=== PATIENT | female | born 1955 | race Caucasian/White ===

== ENCOUNTER → 2022-08-23 | Outpatient (CLI) | payer MEDICARE, SELFPAY | END | disposition home or self-care (01) | LOC: LAB 10:01 | PROVIDERS: PCP Internal Medicine; Referring Provider Obstetrics & Gynecology; Visit Provider Obstetrics & Gynecology | DX: Z00.00 Encounter for general adult medical examination without abnormal findings (principal) | CPT/HCPCS: 36415; 80053; 85027 ==

== ENCOUNTER 2022-09-05 09:17 | Day surgery (SDC) | payer MEDICARE, SELFPAY ==
--- NOTE | 2022-08-18 10:16 | PCM.HP.BLA ---
History and Physical Date of Admission: 08/28/22 HPI: The patient is a 67 year old female presenting for pre-operative visit. She is scheduled for hysteroscopy D&C w/ polyp resection, for PMB and thickened endometrium on 08/28/2022. Procedure discussed along with risks, benefits and complications. Other alternatives discussed for management. Consent form signed? Yes. ? ? PAST MEDICAL HISTORY PAST MEDICAL HISTORY Diagnosis Date ? Allergic rhinitis, cause unspecified ? ? Allergic rhinitis ? Dysmetabolic syndrome X ? ? Edema 09/10/2006 ? Esophageal reflux ? ? HTN (hypertension) ? ? Migraine headache with aura ? ? visual sparkles and scotoma ? Obesity, unspecified ? ? Other and unspecified mitral valve diseases ? ? Snoring ? ? Tobacco use disorder ? ? Vitamin D Deficiency 06/08/2009 ? ? PAST SURGICAL HISTORY PAST SURGICAL HISTORY Procedure Laterality Date ? COLONOSCOPY FLX DX W/COLLJ SPEC WHEN PFRMD ? 10/15/2012 ? Colonoscopy ? COLONOSCOPY FLX DX W/COLLJ SPEC WHEN PFRMD ? 04/02/2018 ? Colonoscopy ? ESOPHAGOGASTRODUODENOSCOPY TRANSORAL DIAGNOSTIC ? 10/15/2012 ? EGD ? HYSTEROSCOPY, DIAGNOSTIC (SEPARATE ? 80s ? Hysteroscopy/D+C ? LEFT HEART CATH,PERCUTANEOUS ? 1996 ? NIPPLE EXPLORATION ? 12/06/14 ? left - benign ? ? ? CURRENT MEDICATIONS Current Outpatient Medications Medication Sig Dispense Refill ? meloxicam (MOBIC) 7.5 mg tablet Take 1-2 tablets daily by mouth for pain as needed. Take with food. 60 tablet 2 ? fluticasone (FLONASE) 50 mcg/actuation nasal spray Use 2 Sprays in each nostril once daily. Rinse mouth after use. 1 Each 3 ? zolpidem (AMBIEN) 10 mg TAKE ONE-HALF TO ONE TABLET BY MOUTH AT BEDTIME NEEDED 30 tablet 1 ? potassium chloride ER (K-DUR, KLOR-CON) 20 mEq tablet Take 1 tablet by mouth once daily. 90 tablet 3 ? triamterene-hydroCHLOROthiazide (MAXZIDE-25) 37.5-25 mg per tablet Take 1 tablet by mouth once daily. 90 tablet 3 ? omeprazole (PRILOSEC) 20 mg capsule Take 20 mg by mouth once daily. ? ? ? Cholecalciferol, Vitamin D3, 5,000 unit ORAL Cap Take 1 capsule by mouth once daily. Take with calcium. ? 0 ? CLARITIN-D 24 HOUR 10 MG-240 MG TAB one tab daily as needed ? 0 ? CENTRUM SILVER TAB Take one(1) tablet daily. ? 0 ? No current facility-administered medications for this visit. ? ? ALLERGIES: Bee Stings [Other], Erythromycin, and Keflex [Cephalexin] ? PERSONAL HISTORY: SOCIAL HISTORY Social History ? Tobacco Use ? Smoking status: Every Day ? ? Packs/day: 0.50 ? ? Years: 37.00 ? ? Pack years: 18.50 ? ? Types: Cigarettes ? ? Start date: 03/26/1968 ? ? Last attempt to quit: 05/11/2006 ? ? Years since quittin.2 ? Smokeless tobacco: Never ? Tobacco comments: ? ? few less than half pack --still workinng on quitting Vaping Use ? Vaping Use: Never used Substance Use Topics ? Alcohol use: Yes ? ? Comment: OCASSIONAL ? Drug use: No ? FAMILY HISTORY: FAMILY HISTORY FAMILY HISTORY Problem Relation Age of Onset ? Stroke Mother ? ? Anesthesia Mother ? ? Heart Mother ? ? Heart Father ? ? Hypertension Father ? ? Uterine Cancer Sister ? ? Heart Brother ? ? mi age 46-- ? Stroke Brother ? ? Cancer Maternal Grandfather ? ? stomach & lung ? ? REVIEW OF SYMPTOMS: GENERAL: denies fevers or chills ENDOCRINOLOGY: has not been on steroids Cardiology : denies palpitations or chest pain Respiratory: denies SOB or cough Hematology: denies history of prolonged bleeding or easy bruising or VTE Allergy: Denies history of personal or family history of allergy to anesthesia ? PHYSICAL EXAMINATION: ? VITALS: Last menstrual period 12/29/2004. ? GENERAL: The patient is well nourished, well hydrated in no acute distress. , The patient is oriented to time, place, and person. NECK: Supple. No lynphadenopathy, normal thyroid, no thyromegaly. LUNGS: Clear to auscultation bilaterally. no wheezes, rhonchi or rales HEART: Regular rate and rhythm, Normal heart sounds, and No murmurs or gallops Pelvic US 07/03/22 Limitations: Body habitus. Uterus size: 7.8 x 3.9 x 4.9 cm ?? ? -Orientation: Anteverted ?? ? -Myometrium: Heterogeneous echotexture with multilevel fibroids. ? The largest fibroid seen in the fundal area measuring 1.4 x 1.0 x 1.6 cm. ?? ? -Endometrial echo complex: Thickened endometrium with multiple cystic areas, measuring 12 mm in thickness. ?? ? -Cervix: Multiple nabothian cysts with the largest one measuring 6 mm. Right ovary: Not visualized. Left ovary: Not visualized. ? ? IMPRESSION: PMB, thickened endometrium ? PLAN: The risks/benefits/alternatives and personal involved for the planned hysteroscopy with D&C and polyp resection were reviewed with the patient. Her questions were answered to her satisfaction and she desires to proceed. Consent was signed. I reviewed with her postop instructions and expectations. ? ? I have reviewed and updated past medical and surgical history, medications and allergies Assessment & Plan Assessment/Plan (1) PMB (postmenopausal bleeding): (2) Endometrial thickening on ultrasound:
[2022-08-23 10:53] LABS: Hematocrit 47.8 % (37-47); Hemoglobin 15.4 g/dL (12.0-15.0); Mean Corp Hgb Conc 32.2 g/dL (32-36); Mean Corpuscular Hgb 30.9 pg (27.0-32.0); Mean Platelet Vol. 10.3 fl (6.2-12.0); Platelet Count 269 K/mm3 (150-450); RBC Distribution Width CV 13.2 % (11.6-14.6); RBC Distribution Width SD 46.7 fl (35.1-43.9); Red Blood Count 4.98 M/mm3 (4.2-5.4); White Blood Count 8.6 K/mm3 (4.4-11.0)
[2022-08-23 11:11] LABS: ALB/GLOB Ratio 0.8 RATIO (0.9-2.4); AST(SGOT) 17 U/L (15-37); Alanine Aminotransfer ALT/SGPT 29 U/L (13-56); Albumin, Serum 3.6 g/dL (3.2-5.0); Alkaline Phosphatase 79 U/L (45-117); Anion Gap 7 (5-15); BUN 17 mg/dL (7-18); BUN/Creat Ratio 18.4 RATIO (10-20); Chloride 105 mmol/L (98-107); Creatinine, Serum 0.92 mg/dL (0.55-1.02); EST Glomerular Filtration Rate 64 mL/min (>60); Est Glom Filt Rate - Afr Amer 78 mL/min (>60); Globulin 4.3 g/dL (2.2-4.2); Glucose 120 mg/dL (74-106); Potassium 3.9 mmol/L (3.5-5.1); Protein, Total 7.9 g/dL (6.4-8.2); Sodium Level 139 mmol/L (136-145)
[2022-09-05] VITALS (7 sets, daily range): BP systolic 117–169; BP diastolic 62–90; PULSE 66–82; RESP 16–18; TEMP 36.3–36.7; O2SAT 91–94; BMI 45.6
[2022-09-05] MEDS: Acetaminophen 500 MG Tablet 1000 MG PO ×2 (09:46→09:50)
[2022-09-05] MEDS: Ketorolac 15 MG/ML Vial IV ×2 (09:46→09:50)
[2022-09-05] MEDS: Lactated Ringers 1,000 ML 15 ML IV (09:52)
--- NOTE | 2022-09-05 10:41 | PCM.DC ---
Discharge Instructions Diet Discharge Diet: No restrictions Activity May shower in (days): 1 May resume sexual activity in: 1-2 weeks and 2 weeks Lifting Restrictions: none Dressing / Incision Call your doctor if your incision/area has: Sudden Increased Bleeding and Foul Smelling Discharge Call your doctor if you observe: Fever of 101 or Higher and Using more than 1 pad per hour (for 2 hrs in a row) Follow Up Care Please Follow Up With: Silvia Singh MD When: We will contact you with your pathology next week and schedule a follow-up appointment if needed. If you have any questions or concerns, please contact the office at [phone] of via [employer] Test Results: Test results from this visit will be discussed in further detail at your follow-up appointment, if applicable. Discharge Plan Admission Primary Reason for Your Visit: Hysteroscopy DIlation and curettage Attending Provider: Silvia Singh Primary Care Provider: Mariposa Toth Discharge Orders/Prescriptions Prescriptions: Continued potassium chloride [Klor-Con] 20 mEq Packet 20 meq PO DAILY Qty: 0 triamterene-hydrochlorothiazid [Maxzide-25mg] 1 EACH tablet 1 tab PO DAILY omeprazole 20 MG capsule 20 mg PO DAILY zolpidem [Ambien] 10 MG tablet 5 mg PO PRN PRN (Reason: Insomnia) fluticasone propionate 50 mcg/actuation [place],Suspension 2 spray INTRANASAL DAILY PRN (Reason: ALLERGIES) Qty: 0 Rx Instructions: administer into each nostril loratadine [Allergy Relief (loratadine)] 10 MG tablet 10 mg PO DAILY calcium carbonate-vitamin D3 1 EACH tablet 1 ea PO DAILY meloxicam 7.5 mg tablet 7.5 mg PO DAILY PRN (Reason: Pain) Referrals / Follow Up: Mariposa Toth MD [Primary Care Provider] - Disposition Disposition (needs filled in before D/C Order can be placed): Home, Self Care
[2022-09-05] MEDS: Lidocaine 1% /Epi 1:100 (20ml) 20 ML Vial (10:44)
--- NOTE | 2022-09-05 10:45 | EMB_PTH ---
PATIENT: BOZENA DAVILA LOC: [facility] – [place] U#:[id number] AGE/SX: 67/F ROOM: RE09/05/[address]: Dr. Silvia Singh MD : [id number] BED: DIS: 09/05/2022 SPEC #: [id number] RECD: 09/05/22 11:25 STATUS: CESAR RICCILiberty #: [id number] BRENNAN: 09/05/22 10:[address]: Silvia Singh DEPT: SURGICAL PATHOLOGY RECD BY: Gail Ceabllos ENTERED: 09/05/22 11:34 SP TYPE: ENDOM BX/C OTHR DR: Dr. Mariposa Toth MD Tissues: Endometrium, NOS Procedures: Surgery Specimen Level IV HEADER OPERATION: Hysteroscopy with polyp resection, D & C Symphion PRE-OP DIAGNOSIS: Postmenopausal bleeding; endometrial thickening on ultrasound TISSUE SUBMITTED: Endometrial curettings and polyp MICROSCOPIC DIAGNOSIS Endometrial curettings and polyp: Disordered endometrium with cystic change. Fragments of benign myometrium. AM:mary jane 09/08/2022 COMMENT Case has been reviewed in consultation with Dr. Rees who concurs with the above diagnosis. IDC:DEEJAY MICROSCOPIC DESCRIPTION Slides are reviewed. GROSS DESCRIPTION Received in fixative is one container labeled with the patient's name and designated endometrial curettings and polyp. The specimen consists of multiple irregular fragments of choudhary soft tissue that in aggregate measure 3.0 x 3.0 x 0.3 cm. The specimen is totally submitted in one cassette. / DEEJAY:mary jane 09/05/2022 TC:5 CPT: 57575
--- NOTE | 2022-09-05 10:58 | OP.PCM_ITS ---
Problems Associated Problem List Diagnoses (1) PMB (postmenopausal bleeding): (2) Endometrial thickening on ultrasound: Report of Operation Date of Procedure: 09/05/22 Pre-Operative Diagnosis: PMB, thickened endometrium Post-Operative Diagnosis: same + endometrial polyp Surgery/Procedure Performed:: Hysteroscopy D&C with endometrial polyp resection Description of Surgical Findings:: normal cervix and vagina, atrophic endometrium, bicornuate shaped uterus, both tubal ostia noted. Small pedunculated posterior polyp Surgeon: Silvia Singh geographic information systems engineer: None Type of Anesthesia: MAC/Supplemental/Local Anesthesiologist: Eloy Lopez Special Medications: none Specimen's removed: endometrial polyp and curettings Drains: none Estimated Blood Loss (mL): 10 Fluids Replaced: 500 Description of Procedure: The patient was taken to the OR where she was prepped and draped in dorsal lithotomy position. The weighted speculum was placed in the vagina and the anterior lip of the cervix was grasped with a single-tooth tenaculum. A paracervical block was administered with [1% lidocaine with 1-100,000 epinephrine solution]. The cervix was dilated serially with Hegar dilators. The Symphion 7 mm hysteroscope was placed into the uterine cavity and the above findings were noted. Bilateral tubal ostia [were] identified. The hysteroscope was removed. The Symphion device was readied and inserted. The polyp was resected in its entirety and the stalk was hemostatic. I then did a visual D&C of the uterine cavity. I then did a sharp gentle curettage of the uterine cavity with minimal specimen returning at that point.. The instruments were removed from the vagina. The specimen was handed off and sent to pathology. All sponge and needle counts were correct. Vaginal sweep was performed by me. The patient was awakened and taken to the recovery room in stable condition. Calculated hysteroscopic fluid deficit is 550 cc of normal saline Grafts/Implants Used: none Procedure Start Time: 10:41 Procedure Stop Time: 10:55 Complications noen Admit VTE Documentation VTE Present on Admission: No VTE Mechan Device Prophylaxis: SCD's VTE Pharm Prophylaxis ordered?: No Reason prophylaxis not ordered:: Procedure Not Indicated
== END 2022-09-05 12:08 | disposition home or self-care (01) ==
LOC: SDC 09:19 → AC 09:21
PROVIDERS: PCP Internal Medicine; Referring Provider Obstetrics & Gynecology; Visit Provider Obstetrics & Gynecology
PROC: 0UB98ZZ Excision of Uterus, Via Natural or Artificial Opening Endoscopic (ICD-10-PCS; CPT 58558; principal; 2022-09-05 10:30)
DX: N95.0 Postmenopausal bleeding (principal); N84.0 Polyp of corpus uteri; I10 Essential (primary) hypertension; K21.9 Gastro-esophageal reflux disease without esophagitis; G43.909 Migraine, unspecified, not intractable, without status migrainosus; F17.210 Nicotine dependence, cigarettes, uncomplicated; Z79.899 Other long term (current) drug therapy
CPT/HCPCS: 58558; 00952; 36415; 80053; 85027; 88305; J7120; J2405

== ENCOUNTER 2024-08-11 11:16 | Day surgery (SDC) | payer MEDICARE, SELFPAY ==
--- NOTE | 2024-07-18 10:33 | HP.PCM_ITS ---
History and Physical Date of Admission: 08/11/24 HPI: The patient is a 68 year old female presenting for pre-operative visit. She is scheduled for Hysteroscopy D&C, polyp resection for PMB and thickened endometrium and endometrial polyp on 08/11/24. Procedure discussed along with risks, benefits and complications. Other alternatives discussed for management. Consent form signed? Yes. ? ? PAST MEDICAL HISTORY PAST MEDICAL HISTORYDiagnosisDate?Allergic rhinitis, cause unspecified??Allergic rhinitis?Dysmetabolic syndrome X??Edema09/10/2006?Esophageal reflux??HTN (hypertension)??Migraine headache with aura??visual sparkles and scotoma ?Obesity, unspecified??Other and unspecified mitral valve diseases??Snoring??Tobacco use disorder??Vitamin D Deficiency 06/08/2009 ? ? PAST SURGICAL HISTORY PAST SURGICAL HISTORYProcedureLateralityDate?COLONOSCOPY FLX DX W/COLLJ SPEC WHEN PFRMD?10/15/2012?Colonoscopy?COLONOSCOPY FLX DX W/COLLJ SPEC WHEN PFRMD?04/02/2018?Colonoscopy?ESOPHAGOGASTRODUODENOSCOPY TRANSORAL DIAGNOSTIC?10/15/2012?EGD?HYSTEROSCOPY BX ENDOMETRIUM&/POLYPC W/WO D&C?09/05/2022?hysteroscopy D&C w/ polyp resection?HYSTEROSCOPY, DIAGNOSTIC (SEPARATE?80s?Hysteroscopy/D+C?LEFT HEART CATH,PERCUTANEOUS?1996?NIPPLE EXPLORATION?12/06/2014?left - benign ? ? ? CURRENT MEDICATIONS Current Outpatient MedicationsMedicationSigDispenseRefill?fluticasone (FLONASE) 50 mcg/actuation nasal sprayUse 2 Sprays in each nostril once daily. Rinse mouth after use.1 Each5?zolpidem (AMBIEN) 10 mgTake 0.5-1 tablets by mouth daily at bedtime for 180 days.30 tablet5?meloxicam (MOBIC) 7.5 mg tabletTake 1-2 tablets daily by mouth for pain as needed. Take with food.60 tablet2?potassium chloride ER (KLOR-CON) 20 mEq tabletTake 1 tablet by mouth once daily.90 tablet3?loratadine-pseudoephedrine ER (CLARITIN-D 24 HOUR) 10-240 mg Up82Dmmb 1 tablet by mouth once daily. PRN90 tablet3?brimonidine (ALPHAGAN) 0.2 % ophthalmic solutionUse 1 Drop in both eyes two times a day.???latanoprost (XALATAN) 0.005 % ophthalmic solution?triamterene-hydroCHLOROthiazide (MAXZIDE-25) 37.5-25 mg per tabletTake 1 tablet by mouth once daily.90 tablet3?omeprazole (PRILOSEC) 20 mg capsuleTake 20 mg by mouth once daily.???Cholecalciferol, Vitamin D3, 5,000 unit ORAL CapTake 1 capsule by mouth once daily. Take with calcium.?0?CENTRUM SILVER TABTake one(1) tablet daily.?0?miSOPROStol (CYTOTEC) 200 mcg tabletUse 2 tablets vaginally one time only for [address] 2 tablets vaginally the night before surgery2 tablet0?dorzolamide (TRUSOPT) 2 % ophthalmic solutionINSTILL 1 DROPS INTO EACH EYE THREE TIMES DAILY DIRECTED (Patient not taking: Reported on 06/22/2024)??? No current facility-administered medications for this visit. ? ? ALLERGIES: Bee Sting, Dorzolamide Hcl, Erythromycin, and Keflex [Cephalexin] ? PERSONAL HISTORY: SOCIAL HISTORY Social History?Tobacco Use?Smoking status:Every Day??Current packs/day:0.00??Average packs/day:0.5 packs/day for 38.1 years (19.1 ttl pk- yrs)??Types:Cigarettes??Start date:03/26/1968??Last attempt to quit:05/11/2006??Years since quittin.1?Smokeless tobacco:Never?Tobacco comments:??few less than half pack --still working on quitting. October 07, 2022--1 pack lasts about 2 weeks Vaping Use?Vaping status:Never UsedSubstance Use Topics?Alcohol use:Yes??Comment: OCASSIONAL?Drug use:No ? FAMILY HISTORY: FAMILY HISTORY FAMILY HISTORY ProblemRelationAge of Onset ?StrokeMother??AnesthesiaMother??HeartMother??HeartFather??HypertensionFather??U terine CancerSister??HeartBrother?? mi age 46-- ?StrokeBrother??CancerMaternal Grandfather?? stomach & lung ? ? REVIEW OF SYMPTOMS: GENERAL: denies fevers or chills ENDOCRINOLOGY: has not been on steroids Cardiology : denies palpitations or chest pain Respiratory: denies SOB or cough Hematology: denies history of prolonged bleeding or easy bruising or VTE Allergy: Denies history of personal or family history of allergy to anesthesia ? PHYSICAL EXAMINATION: ? VITALS: Blood pressure 152/78, weight 127 kg (280 lb), last menstrual period 12/29/2004. ? GENERAL: The patient is well nourished, well hydrated in no acute distress. , The patient is oriented to time, place, and person. NECK: Supple. No lynphadenopathy, normal thyroid, no thyromegaly. LUNGS: Clear to auscultation bilaterally. no wheezes, rhonchi or rales HEART: Regular rate and rhythm, Normal heart sounds, and No murmurs or gallops ? IMPRESSION: PMB/thickened endometrium and endometrial polyp ? PLAN: The risks/benefits/alternatives and personal involved for the planned hysteroscopy D&C with endometrial polyp resection were reviewed with the patient. Her questions were answered to her satisfaction and she desires to proceed. Consent was signed. I reviewed with her postop instructions and expectations. ? ? I have reviewed and updated past medical and surgical history, medications and allergies Assessment & Plan Assessment/Plan (1) Endometrial polyp: (2) PMB (postmenopausal bleeding): (3) Endometrial thickening on ultrasound:
--- NOTE | 2024-08-02 15:39 | PAT.ANE_ITS ---
Pre-Assessment Diagnosis/Proposed Procedure Planned Operative Procedure(s): HYSTERSCOPY, D&C POLYP RESECTION Anesthesia History Anesthesia History - crop and soil scientist: Anesthesia History - crop and soil scientist Hx Hospitalization No 08/01/24 08:21 Any Problems With Anesthesia No 08/01/24 08:21 Cholinesterase deficiency No 08/01/24 08:21 You/Your Family Experience No 08/01/24 08:21 fever (hyperthermia) with Relationship Recent Exposure to Contagious No 09/05/22 09:53 Disease Does patient have nerve No 08/01/24 08:21 stimulator Patient instructed to have device shut off --Does patient have Pacemaker or ICD? When Was Last Pacemaker Check QUESTION #4 FULL TEXT: You/Your Family Experience fever (hyperthermia) with Anesthesia Last Oral Intake Last Oral intake: Last Oral Intake NPO since Meds taken in AM with sips of water? Meds patient instructed to take am of surgery PONV PONV - crop and soil scientist: PONV - crop and soil scientist Female Yes 08/01/24 08:21 HX of Motion Sickness Yes 08/01/24 08:21 HX of N/V After Surgery No 08/01/24 08:21 Non-Smoker No 08/01/24 08:21 Duration of Surgery greater No 08/01/24 08:21 than 60 minutes Number of Risk Factors 2 08/01/24 08:21 PONV Score Moderate Risk 08/01/24 08:21 Height & Weight Height & Weight: Anesthesia: Height & Weight Height 5 ft 8 in 09/05/22 09:53 Respiratory Assessment Respiratory Assessment - crop and soil scientist: Respiratory Tract Infection Hx - crop and soil scientist Hx Respiratory Tract Infection No 08/01/24 08:21 STOP Sleep Apnea STOP Sleep Apnea - crop and soil scientist: STOP Sleep Apnea - crop and soil scientist Hx Hypertension Yes: CONTROLLED WITH MED 08/01/24 08:21 Hx Sleep Apnea No 08/01/24 08:21 CPAP No 09/05/22 11:05 BIPAP No 12/01/14 15:16 Do you snore loudly (louder Yes 08/01/24 08:21 than talking or can be heard Do you often feel tired/ No 08/01/24 08:21 fatigued/ sleepy during daytime? Has anyone observed you stop No 08/01/24 08:21 breathing during sleep? STOP Results Positive 08/01/24 08:21 QUESTION #5 FULL TEXT : Do you snore loudly (louder than talking or can be heard through closed doors)? Tobacco Use History Tobacco Use History - crop and soil scientist: Tobacco Use History - crop and soil scientist Tobacco Use Smoking Status Current every day smoker 08/01/24 08:21 Hx Tobacco Use Yes 08/01/24 08:21 Years Smoking Packs Smoked per Day 0.5 08/01/24 08:21 Smoking Cessation Date was within the last 15 years Hx Smoking Cessation Date Hx Smoking Cessation Counseling Hematologic Medial History Hematologic Hx - crop and soil scientist: Hematologic Medical Hx - bottle tester Hx of Blood Transfusion No 08/01/24 08:21 Hx of Transfusion in last 3 No 08/01/24 08:21 Months Date of Last Transfusion (if within last 3 months) Ever experience any problems No 08/01/24 08:21 with transfusion(s)? Specify any problems Hx of Preganancy in last 3 N/A 08/01/24 08:21 Months Nurse Filling Out Transfusion NBUCHER 08/01/24 08:21 & Questions: Date: 08/01/24 08/01/24 08:21 Time: 08:23 08/01/24 08:21 Patient unable to answer at this time (ie. confused, unrespo /Reproduction History /Reproductive History - crop and soil scientist: /Reproductive Hx- crop and soil scientist Hx Now No 08/01/24 08:21 Gestational Age (in weeks): EDC: Hx Hx Para Hx Section SAB No 08/01/24 08:21 [facility] Medical History (Updated 08/01/24 @ 08:28 by Mihaela Rodriguez) GERD (gastroesophageal reflux disease) Shortness of breath on exertion History of edema Hypertension Gastric reflux Wears glasses Wears dentures Arthritis Migraine headache Smoker History of echocardiogram Mitral valve prolapse Endometrial thickening on ultrasound PMB (postmenopausal bleeding) Home Medications ?Medication ?Instructions ?Recorded ?Last Taken ?Type calcium 600 mg (as 1 ea PO DAILY 12/01/14 Unkno wn History carbonate)-vitamin D3 20 mcg (800 unit) tablet fluticasone propionate 50 2 spray intranasal DAILY PRN 12/01/14 09/05/22 History mcg/actuation nasal ALLERGIES ##0 spray,suspension loratadine 10 mg tablet (Allergy 10 mg PO DAILY 09/05/22 History Relief (loratadine)) omeprazole 20 mg capsule,delayed 20 mg PO DAILY 09/05/22 History release potassium chloride 20 mEq oral 20 meq PO DAILY ##0 Unknown History packet (Klor-Con) triamterene 37.5 1 tab PO DAILY 12/01/1408/18 History mg-hydrochlorothiazide 25 mg tablet (Maxzide-25mg) zolpidem 10 mg tablet (Ambien) 5 mg PO PRN PRN Insomni a 12/01/14 Unknown History meloxicam 7.5 mg tablet 7.5 mg PO DAILY PRN Pain 08/10 Unknown History bimatoprost 0.01 % eye drops 1 drp EACH EYE QHS Unknown History ([place]) brimonidine 0.2 % eye drops 1 drp ophthalmic (eye) BID 08/01/24 Unknown History Allergy/AdvReac Type Severity Reaction Status Date / Time cephalexin monohydrate (From Allergy Hives Verified 08/01/24 08:15 Keflex) erythromycin base Allergy Hives Verified 08/01/24 08:15 venom-honey bee (bee venom Allergy Hives Verified 08/01/24 08:15 (honey bee)) dorzolamide AdvReac Intermediate Itching Verified 08/01/24 08:18 Surgical History (Updated 08/01/24 @ 08:28 by Mihaela Rodriguez) History of colonoscopy History of cardiac catheterization History of hysteroscopy History of breast biopsy Social History (System 12/14/18 @ 14:51 by Mihaela Mariano) Smoking Status: Current every day smoker tobacco type: cigarettes Audit: Pertinent Findings Pertinent Findings Echo (EF%) pertinent findings: October 26, 2020. Ejection fraction 68%. No aortic stenosis noted. Recommendation Anesthesia Recommendation Anesthesia recommendation: OPTIMIZED for anesthesia
[2024-08-03 10:44] LABS: Hematocrit 43.5 % (37-47); Hemoglobin 14.5 g/dL (12.0-15.0); Mean Corp Hgb Conc 33.3 g/dL (32-36); Mean Corpuscular Hgb 31.2 pg (27.0-32.0); Mean Corpuscular Volume 93.5 fL (81-99); Mean Platelet Vol. 10.3 fl (6.2-12.0); Platelet Count 289 K/mm3 (150-450); RBC Distribution Width SD 44.5 fl (35.1-43.9); Red Blood Count 4.65 M/mm3 (4.2-5.4); White Blood Count 7.6 K/mm3 (4.4-11.0)
[2024-08-03 11:16] LABS: Anion Gap 11 (5-15); BUN 23 mg/dL (4-19); BUN/Creat Ratio 26.6 RATIO (10-20); Calcium,Total 9.8 mg/dL (7.6-11.0); Carbon Dioxide 25.8 mmol/L (21.0-32.0); Chloride 103 mmol/L (98-108); Creatinine, Serum 0.86 mg/dL (0.70-1.20); EST Glomerular Filtration Rate 73 (>60); Glucose 122 mg/dL (70-99); Potassium 4.3 mmol/L (3.3-5.1); Sodium Level 140 mmol/L (133-145)
[2024-08-11] VITALS (8 sets, daily range): BP systolic 82–145; BP diastolic 59–95; PULSE 59–73; RESP 14–18; TEMP 36.2–36.9; O2SAT 90–94; BMI 42.2
[2024-08-11] MEDS: Lactated Ringers 1,000 ML 15 ML IV (12:02)
[2024-08-11] MEDS: Ketorolac 15 MG/ML Vial IV (12:02)
[2024-08-11] MEDS: Acetaminophen 500 MG Tablet 1000 MG PO (12:02)
--- NOTE | 2024-08-11 12:17 | PCM.PRE.AN2 ---
ASA Classification* ASA Classification ASA Classification: 3 Assessment & Plan Anesthesia* Anesthesia Assessment Anesthesia Assessment: Discussed sedation and/or anesthesia options, risks, benefits, and alternatives with patient/parents/legal guardian/POA. Questions invited. The patient/parents/legal guardian/POA seems to understand and agrees to proceed with anesthesia plan. Reviewed the physical assessment, medical history, allergy history and patient home medications list prior to surgery/procedure/anesthetic and documented any changes. Performed airway and anesthesia risk assessments. Anesthesia Type Anesthesia Type: MAC History Source History Obtained from:: Patient and Chart Anesthesia Focused Assessment* Temperature: 98.4 F Pulse Rate: 73 Blood Pressure: 145/95 Respiratory Rate: 18 Pulse Ox: 94 Oxygen Delivery Method: Room Air Airway Assessment Mouth opens: >3 cm Mallampati Score: III Teeth Condition: Dentures (Patient has full upper and lower dentures. They are out.) Neck Range of motion (ROM): Full ROM Focused Labs Anesthesia Preop lab: CBC WBC 7.6 K/mm3 (4.4-11.0) 08/03/24 09:57 08/03/24 RBC 4.65 M/mm3 (4.2-5.4) 08/03/24 09:57 08/03/24 Hgb 14.5 g/dL (12.0-15.0) 08/03/24 09:57 08/03/24 Hct 43.5 % (37-47) 08/03/24 09:57 08/03/24 Plt Count 289 K/mm3 (150-450) 08/03/24 09:57 08/03/24 CHEMISTRY Potassium 4.3 mmol/L (3.3-5.1) 08/03/24 09:57 08/03/24 Sodium 140 mmol/L (133-145) 08/03/24 09:57 08/03/24 BUN 23 mg/dL (4-19) H 08/03/24 09:57 08/03/24 Creatinine 0.86 mg/dL (0.70-1.20) 08/03/24 09:57 08/03/24 Glucose 122 mg/dL (70-99) H 08/03/24 09:57 08/03/24 COAG Pre-Assessment Diagnosis/Proposed Procedure Planned Operative Procedure(s): HYSTERSCOPY, D&C POLYP RESECTION Anesthesia History Anesthesia History - marshmallow runner: Anesthesia History - marshmallow runner Hx Hospitalization No 08/01/24 08:21 Any Problems With Anesthesia No 08/01/24 08:21 Cholinesterase deficiency No 08/01/24 08:21 You/Your Family Experience No 08/01/24 08:21 fever (hyperthermia) with Relationship Recent Exposure to Contagious No 08/11/24 11:58 Disease Does patient have nerve No 08/01/24 08:21 stimulator Patient instructed to have device shut off --Does patient have Pacemaker No 08/11/24 11:58 or ICD? When Was Last Pacemaker Check QUESTION #4 FULL TEXT: You/Your Family Experience fever (hyperthermia) with Anesthesia Last Oral Intake Last Oral intake: Last Oral Intake NPO since 22:00 08/11/24 11:58 Meds taken in AM with sips of No 08/11/24 11:58 water? Meds patient instructed to take am of surgery PONV PONV - marshmallow runner: PONV - marshmallow runner Female Yes 08/01/24 08:21 HX of Motion Sickness Yes 08/01/24 08:21 HX of N/V After Surgery No 08/01/24 08:21 Non-Smoker No 08/01/24 08:21 Duration of Surgery greater No 08/01/24 08:21 than 60 minutes Number of Risk Factors 2 08/01/24 08:21 PONV Score Moderate Risk 08/01/24 08:21 Height & Weight Height & Weight: Anesthesia: Height & Weight Height 5 ft 8 in 08/11/24 11:58 Weight: 126 kg 08/11/24 11:58 Body Mass Index (BMI) 42.2 08/11/24 11:58 Respiratory Assessment Respiratory Assessment - marshmallow runner: Respiratory Tract Infection Hx - marshmallow runner Hx Respiratory Tract Infection No 08/01/24 08:21 STOP Sleep Apnea STOP Sleep Apnea - marshmallow runner: STOP Sleep Apnea - marshmallow runner Hx Hypertension Yes: CONTROLLED WITH MED 08/01/24 08:21 Hx Sleep Apnea No 08/01/24 08:21 CPAP No 09/05/22 11:05 BIPAP No 12/01/14 15:16 Do you snore loudly (louder Yes 08/01/24 08:21 than talking or can be heard Do you often feel tired/ No 08/01/24 08:21 fatigued/ sleepy during daytime? Has anyone observed you stop No 08/01/24 08:21 breathing during sleep? STOP Results Positive 08/01/24 08:21 QUESTION #5 FULL TEXT : Do you snore loudly (louder than talking or can be heard through closed doors)? 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 Specify any problems Hx of Preganancy in last 3 N/A 08/01/24 08:21 Months Nurse Filling Out Transfusion NBUCHER 08/01/24 08:21 & Questions: Date: 08/01/24 08/01/24 08:21 Time: 08:23 08/01/24 08:21 Patient unable to answer at this time (ie. confused, unrespo /Reproduction History /Reproductive History - marshmallow runner: /Reproductive Hx- marshmallow runner Hx Now No 08/01/24 08:21 Gestational Age (in weeks): EDC: Hx Hx Para Hx Section SAB No 08/01/24 08:21 Active Medications Active Medications: Current Medications Generic Name Dose Route Start Last Admin Trade Name Freq PRN Reason Stop Dose Admin Acetaminophen 1,000 mg 08/11/24 12:45 08/11/24 12:02 Acetaminophen 500 Mg Tablet PO 08/11/24 12:46 1,000 mg X1 ONE Administration Lactated Ringer's 1,000 mls @ 15 mls/hr 08/11/24 12:00 08/11/24 12:02 IV 15 mls/hr .Q48H MAGALIE Administration Ketorolac Tromethamine 15 mg 08/11/24 12:45 08/11/24 12:02 Ketorolac 15 Mg/Ml Vial IV 08/11/24 12:46 15 mg X1 ONE Administration PFSH Medical History GERD (gastroesophageal reflux disease) Shortness of breath on exertion History of edema Hypertension Gastric reflux Wears glasses Wears dentures Arthritis Migraine headache Smoker History of echocardiogram Mitral valve prolapse Endometrial thickening on ultrasound PMB (postmenopausal bleeding) Home Medications ?Medication ?Instructions ?Recorded ?Last Taken ?Type calcium 600 mg (as 1 ea PO DAILY 12/01/14 Unknown History carbonate)-vitamin D3 20 mcg (800 unit) tablet fluticasone propionate 50 2 spray intranasal DAILY PRN 12/01/14 09/05/22 History mcg/actuation nasal ALLERGIES ##0 spray,suspension loratadine 10 mg tablet (Allergy 10 mg PO DAILY 12/01/14 09/05/22 History Relief (loratadine)) omeprazole 20 mg capsule,delayed 20 mg PO DAILY 12/01/14 09/05/22 History release potassium chloride 20 mEq oral 20 meq PO DAILY ##0 12/01/14 Unknown History packet (Klor-Con) triamterene 37.5 1 tab PO DAILY 12/01/14 09/05/22 History mg-hydrochlorothiazide 25 mg tablet (Maxzide-25mg) zolpidem 10 mg tablet (Ambien) 5 mg PO PRN PRN Insomnia 12/01/14 Unknown History meloxicam 7.5 mg tablet 7.5 mg PO DAILY PRN Pain 08/21/22 Unknown History bimatoprost 0.01 % eye drops 1 drp EACH EYE QHS 08/01/24 Unknown History (Lumigan) brimonidine 0.2 % eye drops 1 drp ophthalmic (eye) BID 08/01/24 Unknown History Allergy/AdvReac Type Severity Reaction Status Date / Time cephalexin monohydrate (From Allergy Hives Verified 08/11/24 11:56 Keflex) erythromycin base Allergy Hives Verified 08/11/24 11:56 venom-honey bee (bee venom Allergy Hives Verified 08/11/24 11:56 (honey bee)) dorzolamide AdvReac Intermediate Itching Verified 08/11/24 11:56 Surgical History History of colonoscopy History of cardiac catheterization History of hysteroscopy History of breast biopsy Social History Smoking Status: Current every day smoker tobacco type: cigarettes Review of Systems (Anesthesia) ROS Narrative System reviewed and no additional complaints, except as documented.
--- NOTE | 2024-08-11 12:45 | EMB_PTH ---
PATIENT: BOZENA DAVILA LOC: [facility] [place] U#:[id number] AGE/SX: 69/F ROOM: RE08/11/[address]: Dr. Silvia Singh MD : 1955 BED: DIS: 08/11/2024 SPEC #: [id number] RECD: 08/12/24 09:40 STATUS: CESAR HENRY #: [id number] BRENNAN: 08/11/24 12:[address]: Silvia Singh DEPT: SURGICAL PATHOLOGY RECD BY: José Luis Ledbetter ENTERED: 08/12/24 09:40 SP TYPE: ENDOM BX/C MARYBEL DR: Dr. Mariposa Toth MD Tissues: A - Endometrium, NOS Procedures: Immunohistochemical Stains Surgery Specimen Level IV IHC Stain ADDITIONAL HEADER OPERATION: Hysteroscopy, D&C, polyp resection PRE-OP DIAGNOSIS: Endometrial polyp, post menopausal bleeding, endometrial thickening on ultrasound TISSUE SUBMITTED: A- Endometrial curettings and polyp MICROSCOPIC DIAGNOSIS A. 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 * Focal squamous metaplasia. * IHC for MMR (mismatch repair proteins), ER, PA and p53 are pending and will be reported in an addendum. COMMENT Selected slides/images were reviewed in intradepartmental consultation by Dr Dorinda Irene (DEBRIDGING MACHINE OPERATOR pathology division, [facility]). MICROSCOPIC DESCRIPTION Slides are reviewed. GROSS DESCRIPTION A. Received in formalin in a container labeled with the patient's name, date of , and endometrial curettings and polyps are multiple white-choudhary fragments of soft tissue admixed with a scant amount of blood and mucus measuring 2.5 x 2.0 x 1.5 cm in aggregate. Submitted in toto in A1-3. [facility] 08-12-2024 CPT:[id number], [id number], [id number] ADDENDUM ADDENDUM ADDENDUM ADDENDUM ADDENDUM ADDENDUM ADDENDUM ADDENDUM ADDENDUM ADDENDUM ADDENDUM ADDENDUM ADDENDUM ADDENDUM ADDENDUM ADDENDUM ADDENDUM ADDENDUM ADDENDUM ADDENDUM ADDENDUM ADDENDUM ADDENDUM ADDENDUM ADDENDUM ADDENDUM ADDENDUM ADDENDUM ADDENDUM ADDENDUM ADDENDUM ADDENDUM ADDENDUM ADDENDUM ADDENDUM ADDENDUM ADDENDUM ADDENDUM ADDENDUM ADDENDUM ADDENDUM ADDENDUM ADDENDUM ADDENDUM ADDENDUM ADDENDUM ADDENDUM ADDENDUM ADDENDUM ADDENDUM 08/31/2024 18:11 ADDENDUM 09/08/2024 13:46 ADDENDUM 08/31/2024 18:11 ADDENDUM 08/31/2024 18:11 ADDENDUM 08/31/2024 18:11 ADDENDUM 08/31/2024 18:11 This addendum is to report the results of the IHC stains performed at [facility]: ER: positive (50%, intermediate intensity) PA: positive (75%, intermediate to strong intensity) p53: wild type Mismatch Repair Protein (MMR) Nuclear Expression by IHC: ? MLH1: ?absent ? PMS2: ?absent ? MSH2: ?present ? MSH6: ?present IHC Interpretation: _X_ Loss of nuclear expression of MLH1 and PMS2: testing for methylation of the MLH1 promoter and/or mutation of BRAF is indicated (the presence of a BRAF V600E mutation and/or MLH1 methylation suggests that the tumor is sporadic and germline evaluation is probably not indicated; absence of both MLH1 methylation and of BRAF V600E mutation suggests the possibility of Seth syndrome, and sequencing and/or large deletion/duplication testing of germline MLH1 may be indicated)# Molecular testing for methylation of the MLH1 promoter has been ordered. The result will be reported in a subsequent addendum. # There are exceptions to the above IHC interpretations. These results should not be considered in isolation, and clinical correlation with genetic counseling is recommended to assess the need for germline testing. All controls show appropriate reactivity. All immunohistochemistry, in situ hybridization, and histochemical tests were developed by and are performed at the [facility], [address], ? [address], [place] [address]. All Immunofluorescent (IF) ?tests were developed by and are performed at the [facility], [facility]. [address] [place] [address], [place], [place] ?[address]. All tests reported here, except those addressing HER2 overexpression as a predictive marker, have not been cleared by or approved by the [place] Food and Drug Administration (FDA). The laboratory is regulated under CLIA as qualified to perform high-complexity testing. The tests are used for clinical purposes. They should not be regarded as investigational or for research. The mismatch repair proteins are evaluated by immunohistochemistry on formalin-fixed, paraffin-embedded tissue, using clone [id number] for MLH1, clone [id number] for PMS2, clone RED2 for MSH2, and clone EP49 for MSH6, and Tissue Mil Genie? Pro Detection Kit, DAB on the [employer] Tissue Mil Genie Advanced Staining System. Convincing nuclear staining in > 1% of tumor cells that is as strong as internal control is considered present/intact. Complete absence of nuclear staining in tumor cells in the presence of nuclear expression in internal control cells is considered absent/lost. Rarely a discrete area of a tumor can show loss of staining with retained nuclear expression in the adjacent tumor cells and internal control cells, which is regarded as subclonal loss and can also be of clinical significance. This addendum is to report the result of the molecular testing for methylation of the MLH1 methylation promoter performed at [facility]: MLH1 METHYLATION STATUS: Hypermethylated MLH1 INTERPRETATION: The presence of hypermethylation of the MLH1 promoter is a tumor sample with loss of MLH1 expression by immunohistochemistry suggests of a MLH1 germline mismatch repair gene mutation is NOT present. No further MLH1 testing is indicated unless evaluation for constitutional MLH1 promoter hypermethylation is warranted. The following pattern was observed for each of the tested MLH1 promoter sites: CpG1: Methylated, CpG2: Methylated, CpG3: Methylated, CpG4: Methylated. Run and sample controls meet acceptable criteria. Please see complete above mentioned consultation report in EMR
--- NOTE | 2024-08-11 13:12 | DCINST_ITS ---
Discharge Instructions Diet Discharge Diet: No restrictions DC O2, CPAP, BIPAP needs Home O2 Discharge instructions: No Dressing / Incision Discharge Activity: May Shower and May Take a Tub Bath (in 1 week) May resume sexual activity in: 1 week Lifting Restrictions: none Dressing / Incision Call your doctor if your incision/area has: Sudden Increased Bleeding and Foul Smelling Discharge Call your doctor if you observe: Fever of 101 or Higher and Using more than 1 pad per hour (for 2 hrs in a row) Follow Up Care Please Follow Up With: Silvia Singh MD When: Dr. Singh's office will contact you with your pathology. Call [phone] or send a [employer] message to make an appointment or with any concerns. Test Results: Test results from this visit will be discussed in further detail at your follow- up appointment, if applicable. Discharge Plan Admission Primary Reason for Your Visit: Hysteroscopy D&C Attending Provider: Silvia Singh Primary Care Provider: Mariposa Toth Instructions Print Language: Montserratian Discharge Orders/Prescriptions Prescriptions: No Action potassium chloride [Klor-Con] 20 mEq Packet 20 meq PO DAILY Qty: 0 triamterene-hydrochlorothiazid [Maxzide-25mg] 1 EACH tablet 1 tab PO DAILY omeprazole 20 MG capsule 20 mg PO DAILY zolpidem [Ambien] 10 MG tablet 5 mg PO PRN PRN (Reason: Insomnia) fluticasone propionate 50 mcg/actuation [place],Suspension 2 spray INTRANASAL DAILY PRN (Reason: ALLERGIES) Qty: 0 Rx Instructions: administer into each nostril loratadine [Allergy Relief (loratadine)] 10 MG tablet 10 mg PO DAILY calcium carbonate-vitamin D3 1 EACH tablet 1 ea PO DAILY meloxicam 7.5 mg tablet 7.5 mg PO DAILY PRN (Reason: Pain) Lumigan 0.01 % drops 1 drp EACH EYE QHS brimonidine 0.2 % drops 1 drp ophthalmic (eye) BID Referrals / Follow Up: Mariposa Toth MD [Primary Care Provider] - Disposition Disposition (needs filled in before D/C Order can be placed): Home, Self Care
[2024-08-11] MEDS: Vasopressin 20 UNITS/ML Vial (13:34)
[2024-08-11] MEDS: 0.9% Normal Saline (Pres. free 10 ML Vial (13:34)
--- NOTE | 2024-08-11 13:54 | PCM.OPRPT ---
Problems Associated Problem List Diagnoses (1) Endometrial polyp: (2) Endometrial thickening on ultrasound: (3) PMB (postmenopausal bleeding): Operative Report (Standard) Operative Information Date of Procedure: 08/11/24 Pre-Operative Diagnosis: PMB, endometrial polyp, thickened endometrium on US Post-Operative Diagnosis: same Surgery/Procedure Performed: Hysteroscopy D&C with polyp resection venetian blind washer: No Type of Anesthesia: MAC RN Documented Start/Stop Times: Operation Date: 08/11/24 12:45 Case Time Into Pre-Op 08/11/24 11:57 Out of Pre-Op 08/11/24 13:13 Procedure Start Time: 13:33 Procedure Stop Time: 13:50 Select all DRAINS/GRAFTS/IMPLANTS that apply: None Special Medications: none Estimated Blood Loss: 10 Fluids Replaced: 500 cc LR Specimen collected: Yes Description of specimen(s) removed: endometrial curettings and polyp Description of surgery: The patient was taken to the OR where she was prepped and draped in dorsal lithotomy position. The weighted speculum was placed in the vagina and the anterior lip of the cervix was grasped with a single-tooth tenaculum. A paracervical block was administered with 8 cc of dilute vasopressin solution which was 10 units of vasopressin and 20 cc of injectable saline. The cervix was dilated serially with Hegar dilators. The `Symphion hysteroscope was placed into the uterine cavity and the above findings were noted. Bilateral tubal ostia [were] identified. The Symphion resection device was readied and inserted. A visual D&C was done of the endometrial cavity and the polypoid appearing tissue was removed in its entirety. A gentle sharp curettage was then done and the uterine cry was appreciated.. The instruments were removed from the vagina. The specimen was handed off and sent to pathology. All sponge and needle counts were correct. Vaginal sweep was performed by me. The patient was awakened and taken to the recovery room in stable condition. Calculated fluid deficit is 650 cc of normal saline. Surgical Findings: thickened endometrium, polyps and bicornuate shaped uterus, normal cervix Complications Complications: No Admit VTE Documentation VTE Present on Admission: No VTE Mechan Device Prophylaxis: SCD's VTE Pharm Prophylaxis ordered?: No Reason prophylaxis not ordered: Procedure Not Indicated
--- NOTE | 2024-08-11 14:02 | PCM.POST.ANE ---
Anesthesia: Postop Eval I Current Vital Signs Temperature: 97.6 F Pulse Rate: 61 Blood Pressure: 82/62 Respiratory Rate: 16 Pulse Ox: 94 Oxygen Delivery Method: Room Air Assessment Airway patent: Yes Spontaneous unlabored respirations: Yes Mental status: Awake and Calm nausea: No Vomiting: No Anesthesia Complication: No Fluid Hydration Crystalloid volume administer (ml): 500 Total IV fluid infused: 500 Progress Note Anesthesia document: Postop Eval 1 completed: Yes
--- NOTE | 2024-08-11 14:27 | POSTOPAN2_ITS ---
Anesthesia Postop Eval I Sum Postop Eval Completion status Anesthesia document: Postop Eval 1 completed: Yes Anesthesia Postop Eval I Summary Anesthesia Postop Eval I Summary: Anesthesia Postop Eval I: Assessment Summary Airway patent Yes 08/11/24 14:06 [email or web address] Spontaneous unlabored Yes 08/11/24 14:06 [email or web address] respirations Mental status Awake,Calm 08/11/24 14:06 [email or web address] nausea No 08/11/24 14:06 [email or web address] [email or web address].[email or web address] Vomiting No 08/11/24 14:06 [email or web address] Anesthesia Postop Eval I: Fluid Summary Crystalloid volume administer 500 08/11/24 14:06 [email or web address] (ml) Colloids volume administered ( ml) Blood Product volume administered (ml) Total IV fluid infused 500 08/11/24 14:06 [email or web address] Anesthesia Postop Eval I: Summary Notes Anesthesia Complication No 08/11/24 14:06 [email or web address] Anesthesia Complication Comment: Post-operative progress note Anesthesia: Postop Eval II Evaluation Mental status: Awake and Calm Pain Level: 0 nausea: No Vomiting: No Complications Anesthesia Complication: No
--- NOTE | 2024-08-11 14:27 | PCM.POSTANE2 ---
Anesthesia Postop Eval I Sum Postop Eval Completion status Anesthesia document: Postop Eval 1 completed: Yes Anesthesia Postop Eval I Summary Anesthesia Postop Eval I Summary: Anesthesia Postop Eval I: Assessment Summary Airway patent Yes 08/11/24 14:06 CAMPAIGN COORDINATOR.[email or web address] Spontaneous unlabored Yes 08/11/24 14:06 CAMPAIGN COORDINATOR.[email or web address] respirations Mental status Awake,Calm 08/11/24 14:06 CAMPAIGN COORDINATOR.[email or web address] nausea No 08/11/24 14:06 CAMPAIGN COORDINATOR.GDOTT Vomiting No 08/11/24 14:06 CAMPAIGN COORDINATOR.[email or web address] Anesthesia Postop Eval I: Fluid Summary Crystalloid volume administer 500 08/11/24 14:06 CAMPAIGN COORDINATOR.GDOTT (ml) Colloids volume administered ( ml) Blood Product volume administered (ml) Total IV fluid infused 500 08/11/24 14:06 CAMPAIGN COORDINATOR.GDOTT Anesthesia Postop Eval I: Summary Notes Anesthesia Complication No 08/11/24 14:06 CAMPAIGN COORDINATOR.GDOTT Anesthesia Complication Comment: Post-operative progress note Anesthesia: Postop Eval II Evaluation Mental status: Awake and Calm Pain Level: 0 nausea: No Vomiting: No Complications Anesthesia Complication: No
== END 2024-08-11 15:20 | disposition home or self-care (01) ==
LOC: SDC 11:17 → AC 11:18
PROVIDERS: PCP Internal Medicine; Referring Provider Obstetrics & Gynecology; Visit Provider Obstetrics & Gynecology
PROC: 0UB98ZZ Excision of Uterus, Via Natural or Artificial Opening Endoscopic (ICD-10-PCS; CPT 58558; principal; 2024-08-11 12:30)
DX: C54.1 Malignant neoplasm of endometrium (principal); N95.0 Postmenopausal bleeding; I10 Essential (primary) hypertension; N85.8 Other specified noninflammatory disorders of uterus; F17.200 Nicotine dependence, unspecified, uncomplicated; Z79.899 Other long term (current) drug therapy
CPT/HCPCS: 58558; 00952; 36415; 80048; 85027; 88305; 88341; 88342; J2405